=== PATIENT | female | born 1965 | race Caucasian/White ===

== ENCOUNTER 2017-02-24 12:13 | Emergency (ER) | payer OTHER ==
[~2017-02-24] VITALS: Ht 157.5 cm; Wt 61.0 kg
[2017-02-24 12:20] VITALS: Ht 157.5 cm; Wt 61.0 kg
--- NOTE | 2017-02-24 14:50 | RADRPT ---
PROCEDURE: X-Ray Soft Tissue Neck. CLINICAL INDICATION: Neck pain. Foreign body sensation. TECHNIQUE: Two views. Frontal and lateral. COMPARISON: No prior studies available for comparison. FINDINGS: The epiglottis is not enlarged. There is no radiopaque foreign body. The prevertebral soft tissues are normal. Bones are grossly normal. The lung apices are normal. IMPRESSION: 1. Normal radiographs of the soft tissues of the neck. 2. No radiopaque foreign body. RPTAT: QQ .Jenaro Saldaña MD, MD Date Time Electronically viewed and signed by .Jenaro Saldaña MD, on 02/24/2017 14:50 .R/
--- NOTE | 2017-02-24 15:05 | RADRPT ---
PROCEDURE: Chest Radiograph. CLINICAL INDICATION: Cough. Foreign body sensation. TECHNIQUE: Single frontal chest radiograph. COMPARISON: None available FINDINGS: The cardiomediastinal silhouette is within normal limits. No infiltrate or effusion is seen. Th e bones are intact. No radiopaque foreign bodies identified. IMPRESSION: 1. Unremarkable chest radiograph. RPTAT: KK .Joo Churchill MD, MD Date Time Electronically viewed and signed by .Joo Churchill MD, on 02/24/2017 15:05 .B/
[2017-02-24 15:28] VITALS: PULSE 60; RESP 16
--- NOTE | 2017-02-24 18:07 | ERD ---
ER Documentation Chief Complaint Date/Time DATE: 02/24/17 TIME: 18:02 Chief Complaint feels piece of meat stuck in throat , able to talk in full sentences HPI Patient is a 51-year-old female with a past medical history of CVA, hypertension who presents to the emergency department for concerns of a piece of meat being stuck in her throat. Patient states that she ate meat for dinner last night. Patient states since that time, she has had a foreign body sensation in her throat and upper mid chest. Patient states that her did perform the Heimlich maneuver on her 3 times. Patient does report discomfort when swallowing. Patient is able to speak in full sentences. Patient denies any drooling. Patient denies any cough. Patient does report difficulty breathing deep. Patient denies any chest pain, nausea, vomiting, unilateral weakness, slurred speech, difficulty ambulating. ROS All systems reviewed and are negative except as per history of present illness. PMhx/Soc History of Surgery: No Anesthesia Reaction: No Hx Neurological Disorder: No Hx Respiratory Disorders: No Hx Cardiac Disorders: Yes (HTN) Hx Psychiatric Problems: No Hx Miscellaneous Medical Probl: No Hx Alcohol Use: No Hx Substance Use: Yes (meth) Hx Tobacco Use: Yes Smoking Status: Current every day smoker FmHx Family History: No diabetes Physical Exam Vitals Vital Signs Date Time Temp Pulse Resp B/P Pulse Ox O2 Delivery O2 Flow Rate FiO2 02/24/17 15:28 60 16 100 Room Air 02/24/17 12:20 97.8 87 18 129/93 98 Physical Exam GENERAL: Well-developed, well-nourished female. Appears in no acute distress. Speaking in full sentences. No signs of acute respiratory distress including abdominal retractions, nasal flaring or tripoding. HEAD: Normocephalic, atraumatic. EYES: Pupils are equally reactive bilaterally. EOMs grossly intact. No conjunctival erythema. ENT: Moist mucous membranes. No uvula deviation. No kissing tonsils. No tongue swelling. No throat closure or swelling noted. No active drooling. NECK: Supple. No meningismus. Normal range of motion of the neck. LUNG: Clear to auscultation bilaterally. No rhonchi, wheezing, rales or coarse breath sounds. No stridor. HEART: Regular rate and rhythm. No murmurs, rubs or gallops. EXTREMITIES: Equal pulses bilaterally. No peripheral clubbing, cyanosis or edema. No unilateral leg swelling. NEUROLOGIC: Alert and oriented. Moving all four extremities without any difficulty. Normal speech. Steady gait. SKIN: Normal color. Warm and dry. No rashes or lesions. Procedures/MDM ED COURSE: The patient was stable throughout ED course. I kept the patient and/or family informed of laboratory and diagnostic imaging results throughout the ED course. DIAGNOSTIC IMAGING: Read by radiologist. DIAGNOSTIC IMAGING REPORT Patient: EBTINA RICHEY : 1965 Age: 51 Sex: F MR #: [id number] DOS: 02/24/17 1333 Ordering MD: TAMMI RODRIGUEZ PA-C Location: [facility] Room/Bed: PROCEDURE: Chest Radiograph. CLINICAL INDICATION: Cough. Foreign body sensation. TECHNIQUE: Single frontal chest radiograph. COMPARISON: None available FINDINGS: The cardiomediastinal silhouette is within normal limits. No infiltrate or effusion is seen. The bones are intact. No radiopaque foreign bodies identified. IMPRESSION: 1. Unremarkable chest radiograph. RPTAT: KK .Joo Churchill MD, MD Date Time Electronically viewed and signed by .Joo Churchill MD, on 2016 15:05 .B/ CC: TAMMI RODRIGUEZ PA-C . DIAGNOSTIC IMAGING REPORT Patient: BETINA RICHEY : 1965 Age: 51 Sex: F MR #: [id number] DOS: 02/24/17 1333 Ordering MD: TAMMI RODRIGUEZ PA-C Location: [facility] Room/Bed: PROCEDURE: X-Ray Soft Tissue Neck. CLINICAL INDICATION: Neck pain. Foreign body sensation. TECHNIQUE: Two views. Frontal and lateral. COMPARISON: No prior studies available for comparison. FINDINGS: The epiglottis is not enlarged. There is no radiopaque foreign body. The prevertebral soft tissues are normal. Bones are grossly normal. The lung apices are normal. IMPRESSION: 1. Normal radiographs of the soft tissues of the neck. 2. No radiopaque foreign body. RPTAT: QQ .Jenaro Saldaña MD, Date Time Electronically viewed and signed by .Jenaro Saldaña MD, on 02/24/2017 14:50 .R/ CC: TAMMI RODRIGUEZ PA-C MEDICAL DECISION MAKING: Patient is a 49-year-old female with history of hypertension, CVA, who presents to the ED for concerns of globus sensation in her mid chest. Patient states vital signs were reviewed. Patient is afebrile. Patient was not hypoxic. Patient was hemodynamically stable. Xray imaging of the patient's neck and chest were unremarkable. At this time, the patient's presentation is most consistent with globus sensation. Unable to rule out any esophageal disorders including strictures, webs and masses at this time. Patient will need a endoscopy to definitively rule out these conditions. Patient understands. Low suspicion for airway compromise, respiratory distress, anaphylaxis. DISCHARGE: At this time, patient is stable for discharge and outpatient management. I have instructed the patient to follow-up with his/her primary care physician in 1-2 days. Patient advised that she will need to follow up with GI specialist for Patient will need an endoscopy on outpatient basis to rule out any esophageal pathology, masses or strictures. I have instructed the patient to promptly return to the ER for any new or worsening symptoms including increased pain, fever, nausea, vomiting, weakness or LOC. The patient and/or family expressed understanding of and agreement with this plan. All questions were answered. Home care instructions were provided. Departure Diagnosis: Primary Impression: Sensation of foreign body Condition: Stable Patient Instructions: Swallowed Foreign Body (Adult) Referrals: NGUYEN DANIELLE MD, NAGARAJ M MD CHITAYAT,BRIANNE DEVINE,NING BASSETT MD,JOSHUA FIGUEREDO MD, MD Additional Instructions: Call your primary care doctor TOMORROW for an appointment during the next 1-2 days.See the doctor sooner or return here if your condition worsens before your appointment time. Unable to rule esophageal pathology. Follow-up with a GI specialist in the next 1-2 days. See referral information. TAMMI RODRIGUEZ PA-C Feb 24, 2017 18:06
== END 2017-02-24 15:28 | disposition home or self-care (01) ==
LOC: FTE 12:13
DX: R09.89 Other specified symptoms and signs involving the circulatory and respiratory systems (principal); I10 Essential (primary) hypertension; F17.210 Nicotine dependence, cigarettes, uncomplicated
CPT/HCPCS: 70360; 71010; Z7502